=== PATIENT | male | born 1940 | race African-American/Black ===

== ENCOUNTER 2017-03-12 12:26 | Emergency (ER) | payer OTHER, BC ==
[~2017-03-12] VITALS: Ht 182.9 cm; Wt 78.5 kg
[~2017-03-12 12:26] MED LIST: ALPHAGAN P5 M1 OP; BACLOFEN10 MG PO; BUFFERIN LOW DO81 M1 PO; COLACE100 MG PO; FLO1 PO; LEVOTHYROXINE0.1 M2 PO; LOR PO; METFORMIN500 M1 PO; NEU300 PO; NIACINAMIDE PO; PERCOCET1 TA2 PO; RESTORIL15 MG PO; TENORMIN25 MG PO; TOF25 PO; XALATAN2.5 ML OU; ZYRTEC10 MG PO
[2017-03-12 12:32] VITALS: Ht 182.9 cm; Wt 78.5 kg
[2017-03-12 15:30] VITALS: BP 172/106
== END 2017-03-12 15:30 | disposition home or self-care (01) ==
LOC: ED 12:26
DX: R07.89 Other chest pain (principal); M54.2 Cervicalgia; M54.5 Low back pain; M25.531 Pain in right wrist; I10 Essential (primary) hypertension; E03.9 Hypothyroidism, unspecified; Z90.49 Acquired absence of other specified parts of digestive tract; Z88.6 Allergy status to analgesic agent; Z88.5 Allergy status to narcotic agent; Z88.8 Allergy status to other drugs, medicaments and biological substances; V89.2XXA Person injured in unspecified motor-vehicle accident, traffic, initial encounter; Y93.79 Activity, other specified sports and athletics; Y92.89 Other specified places as the place of occurrence of the external cause; Y99.8 Other external cause status
CPT/HCPCS: J2270; Q0092

== ENCOUNTER 2017-05-19 12:47 | Emergency (ER) | payer OTHER, BC ==
[~2017-05-19] VITALS: Ht 182.9 cm; Wt 81.2 kg
[2017-05-19 12:58] VITALS: Ht 182.9 cm; Wt 81.2 kg
[2017-05-19 13:49] LABS: PLATELET COUNT 179 x10^3mcL (130-400)
[2017-05-19 13:56] LABS: CALCIUM 8.9 mg/dL (8.5-10.1); CARBON DIOXIDE 30.6 mmol/L (21-32); CHLORIDE SERUM 103 mmol/L (98-107); CREATININE SERUM 1.2 mg/dL (0.7-1.3); GLUCOSE SERUM 118 mg/dL (74-106); POTASSIUM SERUM 3.2 mmol/L (3.5-5.1); SODIUM SERUM 141 mmol/L (136-145)
[2017-05-19 14:00] LABS: ALBUMIN 3.8 g/dL (3.4-5.0); ALKALINE PHOSPHATASE 67 U/L (46-116); ALT/SGPT 27 U/L (16-63); AST/SGOT 44 U/L (15-37); BILIRUBIN TOTAL 0.5 mg/dL (0.20-1.00); TOTAL PROTEIN, SERUM 7.5 g/dL (6.4-8.2)
[2017-05-19 14:05] LABS: BASOPHIL % 0 % (0-2); RED CELL DISTRIBUTION WIDTH 14.7 % (11.5-14.5)
[2017-05-19 17:11] VITALS: BP 166/97
== END 2017-05-19 17:11 | disposition short-term general hospital (02) ==
LOC: ED 12:47
PROVIDERS: Emergency Medicine
DX: R51 Headache (principal); R05 Cough; G89.29 Other chronic pain; M54.2 Cervicalgia; E78.5 Hyperlipidemia, unspecified; I10 Essential (primary) hypertension; E03.9 Hypothyroidism, unspecified; Z88.5 Allergy status to narcotic agent; Z88.8 Allergy status to other drugs, medicaments and biological substances; Z91.040 Latex allergy status; Z91.041 Radiographic dye allergy status
CPT/HCPCS: 83880; J0780; J3010; J7030; J7512; Q0092

== ENCOUNTER 2018-11-13 12:20 | Inpatient (IN) | payer OTHER, BC ==
[~2018-11-13] VITALS: Ht 180.3 cm; Wt 68.9 kg
[~2018-11-13 12:20] MED LIST changes: -TENORMIN25 MG PO
[2018-11-13 12:34] VITALS: Ht 180.3 cm; Wt 68.9 kg
--- NOTE | 2018-11-13 13:24 | NUR ---
PT BIB C/O ABD PAIN AND NAUSEA. PT IN NAD, CALL LIGHT WITHIN REACH, JOKING WITH ME UPON ASSESSMENT, IN POSITION OF COMFORT, AJ RAILS RAISED FOR SAFETY. AWAITING MSE.
--- NOTE | 2018-11-13 13:25 | NUR ---
PT MEDICATED PER EMAR. PT STS PAIN TO ABD INCREASES UPON MOVEMENT, STS " LONG I'M NOT MOVING IT DOESN'T HURT".
[2018-11-13 13:26] LABS: BASOPHIL % 0.2 % (0-2); PLATELET COUNT 193 x10^3mcL (130-400); RED CELL DISTRIBUTION WIDTH 14.3 % (11.5-14.5)
--- NOTE | 2018-11-13 13:31 | NUR ---
PT TAKEN TO XRAY, AT BEDSIDE, NAD NOTED.
[2018-11-13 13:44] LABS: CALCIUM 8.9 mg/dL (8.5-10.1); CARBON DIOXIDE 29.3 mmol/L (21-32); CHLORIDE SERUM 106 mmol/L (98-107); CREATININE SERUM 1.2 mg/dL (0.7-1.3); GLUCOSE SERUM 94 mg/dL (74-106); POTASSIUM SERUM 4.4 mmol/L (3.5-5.1); SODIUM SERUM 143 mmol/L (136-145)
[2018-11-13 13:48] LABS: ALBUMIN 3.9 g/dL (3.4-5.0); ALKALINE PHOSPHATASE 53 U/L (46-116); ALT/SGPT 21 U/L (16-63); AST/SGOT 22 U/L (15-37); BILIRUBIN TOTAL 0.7 mg/dL (0.20-1.00); LIPASE 126 IU/L (73-393); TOTAL PROTEIN, SERUM 7.3 g/dL (6.4-8.2)
[2018-11-13 13:49] LABS: AMYLASE 161 U/L (25-115)
--- NOTE | 2018-11-13 14:38 | NUR ---
PT MEDICATED PER EMAR.
--- NOTE | 2018-11-13 14:42 | NUR ---
UPON D/C PT, PT'S AT BEDSIDE REQUESTING CT, DR HENRY MADE AWARE. ORDER PENDING FOR ABD CT.
--- NOTE | 2018-11-13 16:12 | NUR ---
UPON D/C PT WITH DR HENRY AT BEDSIDE, PT REQUESTING TO BE ADMITTED.
[2018-11-13] MEDS ORDERED: VITAMIN C500 M6 PO (16:44)
[2018-11-13] MEDS ORDERED: FISH OIL 1,0001 EAC1 PO (16:44)
[2018-11-13] MEDS ORDERED: NATURAL IRON65 MG PO (16:44)
[2018-11-13] MEDS ORDERED: LOSARTAN POTAS100 M1 PO (16:49)
[2018-11-13] MEDS ORDERED: MEDI-FIRST ASP325 MG PO (16:49)
[2018-11-13] MEDS ORDERED: ATENOLOL100 MG PO (16:49)
[2018-11-13] MEDS ORDERED: TROSPIUM CHLORI20 MG PO (16:50)
[2018-11-13] MEDS ORDERED: MYRBETRIQ25 MG PO (16:51)
[2018-11-13] MEDS ORDERED: ZYR5 PO (16:52)
--- NOTE | 2018-11-13 19:31 | NUR ---
REPORT GIVEN TO HERMILA STANTON TO ASSUME CARE OF PT.
[2018-11-13 19:39] LABS: MAGNESIUM 2.7 mg/dL (1.8-2.4); PHOSPHOROUS 3.1 mg/dL (2.5-4.9)
[2018-11-13 19:40] LABS: CHOLESTEROL/HDL RATIO 3.8
[2018-11-13 19:49] LABS: AMPHETAMINE QUAL UR NONE DETECTED (See below)
--- NOTE | 2018-11-13 19:51 | NUR ---
PT TRANSFERRED TO MED SURG FLOOR ACCOMPANIED BY EMT. NO S/S OF DISTRESS. RESP E/U. IV SITE PATENT PT DENIES PAIN OR DISCOMFORT TO SITE.
[2018-11-13 20:06] LABS: UA SPECIFIC GRAVITY 1.015 (1.005-1.035); microscopic required? YES; urine erythrocyte TRACE (NEGATIVE)
[2018-11-13 20:29] VITALS: BP 186/103
--- NOTE | 2018-11-13 20:40 | NUR ---
RECEIVED PT FROM ER, PT ADMIT FOR INTRACTABLE ABD PAIN, PT IS A/O X4, VERBAL RESPONSIVE, LUNG SOUND CLEAR BILATERAL, NO COUGH, NO SOB, PT DENY ANY CHEST PAIN OR DISCOMFORT, BOWEL SOUND PRESENT ALL 4 QUADRANTS, PT STATE HAD ABD PAIN AT MID ABD X 2 DAYS. BUT DENY ANY PAIN AT THIS MOMENT, BOWEL SOUND PRESENT ALL 4 QUADRANTS, NO DISTENTION, NO TENDER. PEDAL PULSE PRESENT BOTH FEET, NO EDEMA, IV AT RIGHT FA, NO LEAKING, NO INFILTRATION. ALL ADLS ASSIST, ALL NEED MET, CALL LIGHT IN REACH, WILL CONTINUE TO MONITOR.
--- NOTE | 2018-11-13 22:30 | NUR ---
RESTING QUIETLY IN BED. A/O X4. DENIES HEADACHE/DIZZINESS. RESP. EVEN AND UNLABORED. ON ROOM AIR, NO ACUTE DISTRESS NOTED. DENIES ABD. PAIN OR ANY DISCOMFORT AT THIS TIME. STARTED ON IVF, NS AT 100ML/HR, INFUSING VIA RT HAND. DUE MEDS GIVEN ORDERED, FLIP. WELL. KEPT COMFORTABLE. CALL LIGHT WITHIN REACH. WILL CONTINUE TO MONITOR.
--- NOTE | 2018-11-14 02:30 | NUR ---
ASLEEP AT THIS TIME, EASILY AROUSABLE. RESP. EVEN AND UNLABORED. NO ACUTE DISTRESS NOTED. CALL LIGHT WITHIN REACH. WILL CONTINUE TO MONITOR.
[2018-11-14 04:53] VITALS: BP 154/81
--- NOTE | 2018-11-14 06:30 | NUR ---
AFEBRILE AND VITAL SIGNS STABLE. RESP. EVEN AND UNLABORED. ON ROOM AIR, NO ACUTE DISTRESS NOTED. COMPLAINED OF HEADACHE 5/10, MEDICATED WITH TYLENOL ORDERED. IVF INTACT AND INFUSING WELL, SITE CLEAR. DUE MEDS GIVEN ORDERED, FLIP. WELL. VOIDING FREELY. CALL LIGHT WITHIN REACH. WILL CONTINUE TO MONITOR.
[2018-11-14 06:32] LABS: CALCIUM 8.7 mg/dL (8.5-10.1); CARBON DIOXIDE 28.6 mmol/L (21-32); CHLORIDE SERUM 107 mmol/L (98-107); CREATININE SERUM 0.9 mg/dL (0.7-1.3); GLUCOSE SERUM 79 mg/dL (74-106); SODIUM SERUM 144 mmol/L (136-145)
[2018-11-14 06:40] LABS: BASOPHIL % 0.5 % (0-2); PLATELET COUNT 194 x10^3mcL (130-400); RED CELL DISTRIBUTION WIDTH 13.8 % (11.5-14.5)
--- NOTE | 2018-11-14 07:30 | NUR ---
RECEIVED PATIENT IN BED, AWAKE ALERT AND ORIENTED. IVF INFUSING WELL, SITE PATENT. RESP EVEN AND UNLABORED, LUNGS CLEAR ON ROOM AIR. ABD SOFT NON TENDER, BOWEL SOUNDS ACTIVE. DENIES ANY N/V/D. LBM WAS YESTERDAY PER PATIENT AND NORMAL. DENIES ANY ABD PAIN AT THIS TIME. NO EDEMA, PULSES PALABLE. PATIENT HAS A PACEMAKER, DENIES ANY CHEST PAIN . NO ACUTE DISTRESS NOTED.
[2018-11-14 09:23] VITALS: BP 161/187; BP 161/87
--- NOTE | 2018-11-14 13:36 | NUR ---
PATIENT SITTIING UP IN BED WITH VISITOR AT BEDSIDE. PATIENT TOLERATED FULL LIQUID DIET WELL, NO C/O N/V OR ABD PAIN AT THIS TIME. NO CHANGE IN CONDITION NOTED.
--- NOTE | 2018-11-14 15:07 | NUR ---
ECHOCARDIOGRAM PENDING-WITH NURSE
--- NOTE | 2018-11-14 16:48 | NUR ---
PATIENT REMAINS IN BED. APPEARS TO BE RESTING WELL AT THIS TIME.
--- NOTE | 2018-11-14 16:57 | NUR ---
PATIENT'S PLAN OF CARE WAS DISCUSSED AND REVIEWED WITH SNOW REMOVAL SUPERVISOR:TRISTAN UP. I HAVE REVIEWED THE DATA COLLECTION BY SNOW REMOVAL SUPERVISOR (NAME):TRISTAN UP. ENTERED ON (DATE/TIME):11/14/18. I CONCUR WITH THE DATA AND ANY EXCEPTIONS OR COMMENTS ARE LISTED BELOW:
[2018-11-14 17:52] VITALS: BP 152/97
--- NOTE | 2018-11-14 18:22 | NUR ---
NEW ORDER RECEIVED FOR PATIENT TO HAVE REGULAR DIET. PATIENT IS SITTIING UP IN BED EATING REGULAR TRAY. CONTINUES TO DENY ANY ABD PAIN OR DISCOMFORT. NO ACUTE DISTRESS NOTED THIS SHIFT.
[2018-11-14 19:59] VITALS: BP 147/85
--- NOTE | 2018-11-14 20:00 | NUR ---
RECEIVED PT IN BED, A/O X4. DENIES HEADACHE/DIZZINESS. RESP. EVEN AND UNLABORED. LUNG SOUNDS CLEAR BILAT. ON ROOM AIR, NO ACUTE DISTRESS NOTED. NO TELE, DENIES CP OR ANY DISCOMFORT AT THIS TIME. ABD. SOFT, NON DISTENDED, BS ACTIVE. NO N/V NOTED. FLIP. PO. WELL. IVF, NS AT 100ML/HR, INTACT AND INFUSING VIA RFA. SITE CLEAR. AMBULATORY. VOIDING FREELY. CALL LIGHT WITHIN REACH. WILL CONTINUE TO MONITOR.
[2018-11-15 05:34] VITALS: BP 155/97
--- NOTE | 2018-11-15 06:16 | NUR ---
SLEPT WELL. NO SIGNIFICANT CHANGE NOTED IN PT,S CONDITION.AFEBRILE AND VITAL SIGNS STABLE. DENIES PAIN OR ANY DISCOMFORT AT THIS TIME. RESP. EVEN AND UNLABORED. NO ACUTE DISTRESS NOTED. KEPT COMFORTABLE. WILL CONTINUE TO MONITOR.
[2018-11-15 06:41] LABS: BASOPHIL % 0.4 % (0-2); PLATELET COUNT 193 x10^3mcL (130-400); RED CELL DISTRIBUTION WIDTH 14.1 % (11.5-14.5)
[2018-11-15 06:45] LABS: CALCIUM 8.7 mg/dL (8.5-10.1); CHLORIDE SERUM 108 mmol/L (98-107); CREATININE SERUM 0.9 mg/dL (0.7-1.3); GLUCOSE SERUM 86 mg/dL (74-106); MAGNESIUM 2.2 mg/dL (1.8-2.4); POTASSIUM SERUM 4.5 mmol/L (3.5-5.1); SODIUM SERUM 144 mmol/L (136-145)
--- NOTE | 2018-11-15 07:24 | NUR ---
PT LYING IN BED A/A. BREATHING EQUAL/UNLABORED ON RA. NO C/O PAIN AT THIS TIME. IVF RUNNING AT 100 ML/HR. NO REDNESS/SWELLING TO IV SITE. BED IN LOW POSITION, CALL LIGHT IN REACH, WILL CONTINUE TO MONITOR
[2018-11-15 08:01] VITALS: BP 162/87
--- NOTE | 2018-11-15 11:55 | NUR ---
PT LYING IN BED A/A. BREATHING EQUAL/UNLABORED ON RA. NO ACUTE DISTRESS/ PAIN AT THIS TIME. IVF RUNNING AT 100 ML/HR. NO REDNESS/SWELLING TO IV SITE. BED IN LOW POSITION, CALL LIGHT IN REACH. WILL CONTINUE TO MONITOR
[2018-11-15 12:17] VITALS: BP 177/95
--- NOTE | 2018-11-15 12:28 | NUR ---
TANK ASSEMBLER TOOK PT BP, BP 177/95. BP REPEATED, 173/88 AND 163/90. PT RESTING IN BED, NO SALES. REPORTED BP TO ANA PAULA CADE, NO NEW ORDERS AT THIS TIME
[2018-11-15] MEDS ORDERED: ATENOLOL100 MG PO (14:06)
[2018-11-15] MEDS ORDERED: TENORMIN25 MG PO (14:31)
[2018-11-15 14:33] VITALS: BP 158/82
--- NOTE | 2018-11-15 15:27 | NUR ---
PT DC'D HOME, A/A, ORIENTED X 4. BREATHING EQUAL/ UNLABORED ON RA. NO ACUTE DISTRESS/ PAIN AT THIS TIME. EDUCATION PROVIDED TO PT, PT VERBALIZED UNDERSTANDING. F/U APPT DISCUSSED WITH PT. NO NEW RX GIVEN. ALL QUESTIONS/ CONCERNS ADDRESSED. IV REMOVED WITH CATHETER INTACT. NO REDNESS/ SWELLING TO IV SITE. PT AMBULATED TO [facility], ACCOMPANIED BY SOCIAL SERVICE AGENCY DIRECTOR AND . ALL BELONGINGS WITH PT
== END 2018-11-15 15:25 | disposition home or self-care (01) | DRG 440 ==
LOC: ED 12:20 → MU 16:24
PROVIDERS: Emergency Medicine; ADMIT Family Medicine
DX: K85.90 Acute pancreatitis without necrosis or infection, unspecified (principal); K86.1 Other chronic pancreatitis; I10 Essential (primary) hypertension; E03.9 Hypothyroidism, unspecified; E78.5 Hyperlipidemia, unspecified; M54.2 Cervicalgia; G89.29 Other chronic pain; Z95.0 Presence of cardiac pacemaker; Z96.651 Presence of right artificial knee joint; Z68.25 Body mass index [BMI] 25.0-25.9, adult; Z85.46 Personal history of malignant neoplasm of prostate; Z90.79 Acquired absence of other genital organ(s); Z90.49 Acquired absence of other specified parts of digestive tract
CPT/HCPCS: 83880; 90658; G0378; J3010; J7030

== ENCOUNTER → 2019-01-04 | Outpatient (CLI) | payer OTHER, BC ==
[~2019-01-04] MED LIST changes: +ATENOLOL100 MG PO; +FISH OIL 1,0001 EAC1 PO; +LOSARTAN POTAS100 M1 PO; +MEDI-FIRST ASP325 MG PO; +MYRBETRIQ25 MG PO; +NATURAL IRON65 MG PO; +TENORMIN25 MG PO; +TROSPIUM CHLORI20 MG PO; +VITAMIN C500 M6 PO; +ZYR5 PO
[2019-01-04 14:16] LABS: CHOLESTEROL/HDL RATIO 2.7
== END | disposition home or self-care (01) ==
LOC: LB 13:31
DX: E78.00 Pure hypercholesterolemia, unspecified (principal)

== ENCOUNTER 2019-06-05 09:42 | Emergency (ER) | payer OTHER, BC ==
[~2019-06-05] VITALS: Ht 180.3 cm; Wt 78.0 kg
[2019-06-05 09:54] VITALS: Ht 180.3 cm; Wt 78.0 kg
[2019-06-05 11:31] VITALS: BP 131/78
== END 2019-06-05 11:31 | disposition home or self-care (01) ==
LOC: ED 09:42
DX: R51 Headache (principal); I10 Essential (primary) hypertension; E03.9 Hypothyroidism, unspecified; G89.29 Other chronic pain; M54.2 Cervicalgia; Z90.49 Acquired absence of other specified parts of digestive tract; Z88.5 Allergy status to narcotic agent; Z88.6 Allergy status to analgesic agent; Z91.040 Latex allergy status